=== PATIENT | female | born 2000 | race Two or more races ===

== ENCOUNTER 2020-03-24 09:32 | Emergency (ER) | payer OTHER ==
[~2020-03-24] VITALS: Ht 162.6 cm; Wt 63.9 kg
[2020-03-24] MEDS ORDERED: METHOCARBAMOL 500 MG TABLET ONE (09:58)
[2020-03-24] MEDS ORDERED: KETOROLAC 30 MG/1 ML ONE (09:58)
[2020-03-24] MEDS ORDERED: METHOCARBAMOL 750 MG TABLET PO ONE (10:00)
[2020-03-24] MEDS ORDERED: KETOROLAC 30 MG/1 ML IM ONE (10:00)
--- NOTE | 2020-03-24 10:10 | NUR ---
Pt changed into gown, necklace removed for possible radiology exams, c-collar in place. Pt states pain is laterally present to spinal column and no pain in upper or lower back present. Pt assessment completed and awaiting MD exam.
--- NOTE | 2020-03-24 10:20 | NUR ---
Reassessed pain is 0/10 after Toradol IM injection. Pt back to room from CT.
[2020-03-24 11:00] VITALS: BP 115/55
== END 2020-03-24 11:08 | disposition home or self-care (01) ==
LOC: ED 10:52
DX: S16.1XXA Strain of muscle, fascia and tendon at neck level, initial encounter (principal); S60.041A Contusion of right ring finger without damage to nail, initial encounter; V98.8XXA Other specified transport accidents, initial encounter; Y93.89 Activity, other specified; Y92.488 Other paved roadways as the place of occurrence of the external cause; Y99.8 Other external cause status
CPT/HCPCS: 72125; 73130; 96372; 99284; J1885